=== PATIENT | female | born 1990 | race Caucasian/White ===

== ENCOUNTER 2021-12-13 13:16 | Outpatient (CLI) | payer OTHER, SELFPAY ==
--- NOTE | 2021-12-13 13:37 | XR_ITS ---
WS: [id number] AP and lateral views of the neck, 12/13/2021 Clinical Data: SORE THROAT/FATIGUE/?PERITONSILLAR ABSCESS Comparison: Cervical spine, 04/13/2012. Findings: The hypopharynx and oropharynx show no abnormalities. There is no prevertebral soft tissue swelling. The trachea is normal in size. On the AP view the soft tissues of the neck and the lung apices are un remarkable. The cervical spine shows no bony abnormalities. XR/XR soft tissue neck [id number] Impression: Negative AP and lateral views of the neck.
== END 2021-12-13 13:17 | disposition home or self-care (01) ==
PROVIDERS: PCP Nurse Practitioner; Visit Provider Nurse Practitioner Family
DX: J02.9 Acute pharyngitis, unspecified (principal); R53.83 Other fatigue
CPT/HCPCS: 70360